=== PATIENT | male | born 1975 | race Caucasian/White ===

== ENCOUNTER 2020-12-13 06:20 | Emergency (ER) | payer OTHER ==
[~2020-12-13] VITALS: Ht 180.3 cm; Wt 131.8 kg
[2020-12-13 06:24] VITALS: BP 139/79; Ht 180.3 cm; Wt 131.8 kg
[2020-12-13] MEDS ORDERED: CLEOCIN HCL300 MG PO (06:44)
[2020-12-13] MEDS ORDERED: NAPROSYN500 MG PO (06:44)
== END 2020-12-13 06:54 | disposition home or self-care (01) ==
LOC: D.ER 06:20
DX: K04.7 Periapical abscess without sinus (principal); I10 Essential (primary) hypertension; Z95.0 Presence of cardiac pacemaker; Z72.0 Tobacco use